=== PATIENT | male | born 1985 | race African-American/Black ===

== ENCOUNTER 2024-08-24 15:17 | Emergency (ER) | payer OTHER, SELFPAY ==
[2024-08-24] MEDS ORDERED: Ziprasidone 20 MG VIAL ONE (15:32)
[2024-08-24] MEDS ORDERED: Sterile Water 10 ML ONE (15:33)
[2024-08-24 15:39] LABS: #Basophils 0.03 10x3/uL (0.0-0.2); #Monocytes 0.86 10x3/uL (0.0-1.1); #Neutrophils 7.14 10x3/uL (1.5-8.4); %Basophils 0.3 % (0.0-2.0); %Lymphocytes 10.9 % (18.0-47.0); %Monocytes 9.5 % (0.0-10.0); Hematocrit 40.7 % (38.8-50.0); Hemoglobin 13.3 g/dL (13.5-17.5); Mean Corpuscular HGB CONC 32.7 g/dL (32.0-36.0); Mean Corpuscular Hemoglobin 28.4 pg (27.0-33.0); Mean Corpuscular Volume 86.8 fL (81.2-95.1); Mean Platelet Volume 11.7 fL (7.4-10.4); Platelet Count 247 10x3/uL (150-450); RBC Distribution Width 14.3 % (11.5-14.5); Red Blood Cell (RBC) Count 4.69 10x6/uL (4.32-5.72); White Blood Cell (WBC) Count 9.1 10x3/uL (3.5-10.5)
[2024-08-24 15:50] LABS: Acetaminophen Less than 10 mcg/mL (Less than 10); Alcohol Less than 10.0 mg/dL (Less than 10); Salicylate Less than 8.0 mg/dL (Less than 8.0)
[2024-08-24 15:51] LABS: ALT (SGPT) 79 U/L (8-55); AST (SGOT) 211 U/L (5-34); Albumin 4.6 g/dL (3.5-5.0); Alcohol Less than 10.0 mg/dL (Less than 10); Alkaline Phosphatase 89 U/L (40-110); Anion Gap 26 mmol/L (10-20); BUN (Urea Nitrogen) 15 mg/dL (8.9-20.6); Bilirubin, Total 0.6 mg/dL (0.2-1.2); Calc. Creatinine Clearance 0 mL/min (70-130); Calcium 10.3 mg/dL (7.8-10.44); Carbon Dioxide 18 mmol/L (22-29); Chloride 103 mmol/L (98-107); Estimated GFR 54; Globulin 3.5 g/dL (2.4-3.5); Glucose 86 mg/dL (70-105); Protein, Total 8.1 g/dL (6.0-8.3); Sodium 143 mmol/L (136-145)
[2024-08-24 15:57] LABS: Troponin I 0.013 ng/mL (< 0.028)
[2024-08-24 16:13] LABS: CK (CPK) 11111 U/L (30-200)
[2024-08-24] MEDS ORDERED: levETIRAcetam 500 MG (5 mL) VIAL ONE (18:47)
[2024-08-24] MEDS ORDERED: Lorazepam 2 MG/ML VIAL ONE (19:47)
== END 2024-08-24 21:07 | disposition short-term general hospital (02) ==
LOC: CSHERS 15:17
DX: R41.82 Altered mental status, unspecified (principal); M62.82 Rhabdomyolysis; F20.9 Schizophrenia, unspecified; F31.9 Bipolar disorder, unspecified; Z79.899 Other long term (current) drug therapy
CPT/HCPCS: 36415; 70450; 80053; 80307; 82550; 83605; 83735; 84443; 84484; 85025; 93005; 93010; 96361; 96372; 96374; 96375; J1953; J2060; J3486